=== PATIENT | male | born 1985 | race American Indian/Alaskan Native ===

== ENCOUNTER 2017-12-31 16:21 | Emergency (ER) | payer BC, OTHER ==
[2017-12-31 16:21] VITALS: BMI 26.6
[2017-12-31 16:46] VITALS: BP 137/92; PULSE 66; RESP 20; TEMP 8.5; O2SAT 98
--- NOTE | 2017-12-31 17:09 | ED PDOC ---
Lower Extremity Pain/Injury Time Seen by Provider: 12/31/17 17:05 Chief Complaint (Nursing): Lower Extremity Problem/Injury Chief Complaint (Provider): knee pain History Per: Patient Additional Complaint(s): 32-year-old male presents to ER with painful right knee ongoing for about 2 weeks. Patient states pain is worse when he is running and better with rest. He had an x-ray completed last week and was told that the x-ray was unremarkable. Patient has been taking ibuprofen but this has not helped the pain. He denies any acute trauma or injury. PMD: Dr. Bhakta Past Medical History Reviewed: Historical Data, Nursing Documentation, Vital Signs Vital Signs: Last Vital Signs Temp 8.5 F L 12/31/17 16:44 Pulse 66 12/31/17 16:44 Resp 20 12/31/17 16:44 BP 137/92 H 12/31/17 16:44 Pulse Ox 98 12/31/17 16:44 - Medical History PMH: No Chronic Diseases - Surgical History Surgical History: No Surg Hx - Family History Family History: States: No Known Family Hx - Living Arrangements Living Arrangements: With Friends/Others - Social History Current smoker - smoking cessation education provided: No Alcohol: None Drugs: Denies - Home Medications Home Medications: Ambulatory Orders Medication Instructions Recorded Hydrocortisone 2.5% (Rectal) 30 applic MD BID PRN #1 tube 11/13/17 [Anusol-HC] Cyclobenzaprine [Cyclobenzaprine 10 mg PO TID PRN #20 tab 12/31/17 HCl] Naproxen [Naprosyn] 500 mg PO BID #20 tab 12/31/17 - Allergies Allergies/Adverse Reactions: Allergies Allergy/AdvReac Type Severity Reaction Status Date / Time black dye Allergy RASH Uncoded 12/31/17 16:44 Review of Systems ROS Statement: Except As Marked, All Systems Reviewed And Found Negative Musculoskeletal: Positive for: Other (right knee pain) Physical Exam - Reviewed Nursing Documentation Reviewed: Yes Vital Signs Reviewed: Yes - Physical Exam Appears: Positive for: Well, Non-toxic, No Acute Distress Skin: Negative for: Rash Eye Exam: Positive for: Normal appearance Neck: Positive for: Normal Extremity: Positive for: Other (full rom right knee with pain, no calf swelling or tenderness, normal distal sensation right lower extremity) Neurologic/Psych: Positive for: Alert, Oriented - ECG O2 Sat by Pulse Oximetry: 98 Pulse Ox Interpretation: Normal Medical Decision Making Medical Decision Makin32 year old male with right knee pain for 2 weeks Plan: Pain meds declined Patient already had x-rays last week at another facility Knee immobilizer and crutches declined Patient was referred to ortho bonsai culturist for follow up. Rx naprosyn and flexeril given. Disposition - Clinical Impression Clinical Impression: Knee pain - Patient ED Disposition Is Patient to be Admitted: No Counseled Patient/Family Regarding: Need For Followup, Rx Given - Disposition Referrals: Nathalie Up MD [Staff Provider] - Disposition: Routine/Home Disposition Time: 17:47 Condition: STABLE Additional Instructions: Take rx meds as directed as needed for pain. Follow up as soon with primary care doctor or orthopedist. Prescriptions: Cyclobenzaprine [Cyclobenzaprine HCl] 10 mg PO TID PRN #20 tab PRN Reason: Muscle Spasm Naproxen [Naprosyn] 500 mg PO BID #20 tab Instructions: Knee Pain (DC) Forms: [employer] (Indonesian)
== END 2017-12-31 18:00 | disposition home or self-care (01) ==
LOC: H.ER 16:21
DX: M25.561 Pain in right knee (principal)